=== PATIENT | male | born 1940 | race Caucasian/White ===

== ENCOUNTER → 2016-11-29 | Outpatient (CLI) | payer MEDICARE, BC | END | disposition home or self-care (01) | LOC: CDC 10:35 | DX: Z01.810 Encounter for preprocedural cardiovascular examination (principal) | CPT/HCPCS: 93000 ==

== ENCOUNTER 2017-04-19 15:47 | Inpatient (IN) | payer OTHER, BC ==
[~2017-04-19] VITALS: Ht 175.3 cm; Wt 87.8 kg
[2017-04-19 17:22] LABS: HEMATOCRIT 33.7 % (38.0-50.0); MCH 30.9 PG (29.0-34.0); MCHC 33.2 G/DL (30.0-36.0); PLATELET COUNT 234 K/uL (156-360); RBC DIS.WIDTH-CV 13.4 % (11.8-14.6); RBC DIS.WIDTH-SD 45.9 % (39-53); RED BLOOD COUNT 3.63 M/uL (4.00-5.50); WHITE BLOOD COUNT 9.2 K/uL (4.1-10.2)
[2017-04-19 17:29] LABS: CHLORIDE 105 mEq/L (99-109); MCV 92.8 FL (86-99); SODIUM 141 mEq/L (136-147)
[2017-04-19 17:30] LABS: GLUCOSE 98 mg/dL (70-99)
[2017-04-19 17:32] LABS: ANION GAP 12 MEQ/L (2-14)
[2017-04-19 17:34] LABS: GFR ESTIMATE (CALCULATED) 11 mL/min/
[2017-04-19 17:35] LABS: UREA NITROGEN (BUN) 67 mg/dL (9-23)
[2017-04-19 17:56] LABS: ADD MIUA? YES; BILIRUBIN NEGATIVE; BLOOD MODERATE; COLOR YELLOW ((YELLOW)); GLUCOSE (STRIP) NEGATIVE; KETONES NEGATIVE; LEUKOCYTES SMALL; NITRITE NEGATIVE; PROTEIN (STRIP) 100; UROBILINOGEN 0.2 MG/DL (0.2-1.0)
[2017-04-19 18:00] LABS: BACTERIA RARE /HPF; EPITHELIAL CELLS NONE SEEN /HPF; MUCUS TRACE /LPF; RED BLOOD CELLS 0-5 /HPF (0-5); UCUL ADDED? NO
[2017-04-19] MEDS ORDERED: FISH OIL 1,0001 EAC7 PO (19:05)
[2017-04-19] MEDS ORDERED: LISINOPRIL-HCT1 EACH PO (19:05)
[2017-04-19] MEDS ORDERED: LO-DOSE ASPIRIN81 M2 PO (19:05)
[2017-04-19] MEDS ORDERED: SIMVASTATIN40 MG PO (19:05)
[2017-04-19] MEDS ORDERED: ALEVE220 MG PO (19:06)
[2017-04-19] MEDS ORDERED: ONE-A-DAY ESSE1 EAC1 PO (19:06)
[2017-04-19 23:04] LABS: TOTAL BILIRUBIN 0.3 mg/dL (0.0-1.0)
[2017-04-19 23:05] LABS: ALKALINE PHOSPHATASE 86 IU/L (3-129)
[2017-04-19 23:07] LABS: DIRECT BILIRUBIN 0.1 mg/dL (0.0-0.3)
[2017-04-19 23:08] LABS: CREATINE KINASE 128 IU/L (1-294); URIC ACID 8.2 mg/dL (3.1-9.2)
[2017-04-19 23:53] VITALS: BP 130/61
[2017-04-20 02:23] LABS: UR CREATININE CONCENTRATION 109.3 MG/DL
[2017-04-20 04:15] VITALS: BP 143/67
[2017-04-20 07:12] LABS: HEMATOCRIT 32.5 % (38.0-50.0); MCH 31.6 PG (29.0-34.0); MCHC 33.5 G/DL (30.0-36.0); MCV 94.2 FL (86-99); MEAN PLAT.VOLUME 11.1 uM^3 (9.0-12.4); PLATELET COUNT 232 K/uL (156-360); RBC DIS.WIDTH-CV 13.5 % (11.8-14.6); RBC DIS.WIDTH-SD 46.1 % (39-53); RED BLOOD COUNT 3.45 M/uL (4.00-5.50); WHITE BLOOD COUNT 8.2 K/uL (4.1-10.2)
[2017-04-20 07:35] VITALS: BP 142/67
[2017-04-20 07:39] LABS: ANION GAP 9 MEQ/L (2-14); CHLORIDE 110 MEQ/L (99-109); GFR ESTIMATE (CALCULATED) 11 mL/min/; GLUCOSE 83 mg/dL (70-99); IRON 61 MCG/DL (35-150); POTASSIUM 4.5 MEQ/L (3.7-5.4); SAMPLE HEMOLYSIS CHECK 0; SAMPLE ICTERIC CHECK 0; SAMPLE LIPEMIA CHECK 0; SODIUM 143 MEQ/L (136-147); UREA NITROGEN (BUN) 64 mg/dL (9-23)
[2017-04-20 08:15] LABS: FERRITIN 246 NG/ML (22-322)
[2017-04-20 13:22] VITALS: BP 145/65
[2017-04-20 14:02] LABS: UR CREATININE CONCENTRATION 80.3 MG/DL
[2017-04-20 15:50] VITALS: BP 101/60; BP 135/84
[2017-04-20 20:38] VITALS: BP 112/64
[2017-04-20 23:18] VITALS: BP 163/70
[2017-04-21 06:40] LABS: BASOPHIL COUNT 0.1 K/uL (0-0.1); EOSINOPHIL (%) 5.2 % (0-5); EOSINOPHIL COUNT 0.3 K/uL (0-0.3); HEMATOCRIT 28.1 % (38.0-50.0); IMMATURE GRANULOCYTE (%) 0.3 % (0.0-0.7); LYMPHOCYTE COUNT 1.2 K/uL (1.0-2.8); MCH 31.5 PG (29.0-34.0); MCHC 33.5 G/DL (30.0-36.0); MCV 94.3 FL (86-99); MEAN PLAT.VOLUME 11.1 uM^3 (9.0-12.4); MONOCYTE (%) 10.1 % (3-12); MONOCYTE COUNT 0.6 K/uL (0-0.8); NEUTROPHIL (%) 64.2 % (45-76); PLATELET COUNT 205 K/uL (156-360); RBC DIS.WIDTH-CV 13.4 % (11.8-14.6); RBC DIS.WIDTH-SD 45.6 % (39-53); RED BLOOD COUNT 2.98 M/uL (4.00-5.50); WHITE BLOOD COUNT 6.2 K/uL (4.1-10.2)
[2017-04-21 07:10] LABS: ALKALINE PHOSPHATASE 76 IU/L (3-129); ANION GAP 9 MEQ/L (2-14); CHLORIDE 109 MEQ/L (99-109); GFR ESTIMATE (CALCULATED) 13 mL/min/; GLUCOSE 85 mg/dL (70-99); POTASSIUM 4.3 MEQ/L (3.7-5.4); SAMPLE HEMOLYSIS CHECK 0; SAMPLE ICTERIC CHECK 0; SAMPLE LIPEMIA CHECK 0; SODIUM 141 MEQ/L (136-147); UREA NITROGEN (BUN) 56 mg/dL (9-23)
[2017-04-21 07:11] LABS: TOTAL BILIRUBIN 0.5 MG/DL (0.0-1.0)
[2017-04-21 07:55] VITALS: BP 148/68
[2017-04-21 15:26] VITALS: BP 126/65
[2017-04-22 00:20] VITALS: BP 137/58
[2017-04-22 06:38] LABS: BASOPHIL COUNT 0.1 K/uL (0-0.1); EOSINOPHIL (%) 3.1 % (0-5); EOSINOPHIL COUNT 0.3 K/uL (0-0.3); HEMATOCRIT 30.8 % (38.0-50.0); IMMATURE GRANULOCYTE (%) 0.4 % (0.0-0.7); INSTRUMENT ABS NEUTROPHIL CT 6.2 K/uL; MCH 30.8 PG (29.0-34.0); MCHC 32.8 G/DL (30.0-36.0); MCV 93.9 FL (86-99); MONOCYTE (%) 8.7 % (3-12); MONOCYTE COUNT 0.7 K/uL (0-0.8); NEUTROPHIL (%) 74.8 % (45-76); NEUTROPHIL COUNT 6.2 K/uL (1.8-6.4); PLATELET COUNT 229 K/uL (156-360); RBC DIS.WIDTH-CV 13.2 % (11.8-14.6); RBC DIS.WIDTH-SD 44.9 % (39-53); RED BLOOD COUNT 3.28 M/uL (4.00-5.50); WHITE BLOOD COUNT 8.3 K/uL (4.1-10.2)
[2017-04-22 07:11] LABS: ALKALINE PHOSPHATASE 86 IU/L (3-129); ANION GAP 11 MEQ/L (2-14); CHLORIDE 109 MEQ/L (99-109); GFR ESTIMATE (CALCULATED) 15 mL/min/; POTASSIUM 4.5 MEQ/L (3.7-5.4); SAMPLE HEMOLYSIS CHECK 0; SAMPLE ICTERIC CHECK 0; SAMPLE LIPEMIA CHECK 0; SODIUM 143 MEQ/L (136-147); UREA NITROGEN (BUN) 48 mg/dL (9-23)
[2017-04-22 07:12] LABS: GLUCOSE 108 mg/dL (70-99); TOTAL BILIRUBIN 0.3 MG/DL (0.0-1.0)
[2017-04-22 08:22] VITALS: BP 101/56; BP 105/66
[2017-04-22 12:30] VITALS: BP 123/60
[2017-04-22 16:08] VITALS: BP 140/74
[2017-04-22 21:21] VITALS: BP 130/59
[2017-04-23 00:04] VITALS: BP 133/62
[2017-04-23 07:00] LABS: ANION GAP 9 MEQ/L (2-14); CHLORIDE 109 MEQ/L (99-109); GFR ESTIMATE (CALCULATED) 18 mL/min/; GLUCOSE 102 mg/dL (70-99); POTASSIUM 4.5 MEQ/L (3.7-5.4); SAMPLE HEMOLYSIS CHECK 0; SAMPLE ICTERIC CHECK 0; SAMPLE LIPEMIA CHECK 0; SODIUM 144 MEQ/L (136-147); UREA NITROGEN (BUN) 40 mg/dL (9-23)
[2017-04-23 08:11] VITALS: BP 120/69
== END 2017-04-23 14:52 | disposition home or self-care (01) | DRG 684 ==
LOC: EME 15:47 → EDOF 21:35 → 3EAST 21:35
PROVIDERS: Hospitalist; Internal Medicine
DX: N17.0 Acute kidney failure with tubular necrosis (principal); N13.30 Unspecified hydronephrosis; I10 Essential (primary) hypertension; N13.9 Obstructive and reflux uropathy, unspecified; F17.210 Nicotine dependence, cigarettes, uncomplicated; C67.9 Malignant neoplasm of bladder, unspecified; Z96.0 Presence of urogenital implants; I25.10 Atherosclerotic heart disease of native coronary artery without angina pectoris; G47.30 Sleep apnea, unspecified; E87.8 Other disorders of electrolyte and fluid balance, not elsewhere classified; I73.9 Peripheral vascular disease, unspecified; G89.29 Other chronic pain; K59.00 Constipation, unspecified; E78.00 Pure hypercholesterolemia, unspecified; D64.9 Anemia, unspecified; R32 Unspecified urinary incontinence; Z86.73 Personal history of transient ischemic attack (TIA), and cerebral infarction without residual deficits; Z85.46 Personal history of malignant neoplasm of prostate
CPT/HCPCS: 36415; 50433; 70490; 74176; 76770; 80048; 80053; 80069; 80076; 81003; 82436; 82550; 82550 91; 82570; 82728; 83036; 83540; 83930; 83935; 84100; 84133; 84156; 84300; 84443; 84466; 84550; 85025; 85027; 85651; 89190; 93975; 99281; 99285; C1769; G0103; J0696; J1644; J3010; J7030; J7050

== ENCOUNTER 2017-05-11 10:33 | Inpatient (IN) | payer OTHER, BC ==
[~2017-05-11] VITALS: Ht 175.3 cm; Wt 88.6 kg
[~2017-05-11 10:33] MED LIST: ALEVE220 MG PO; FISH OIL 1,0001 EAC7 PO; LISINOPRIL-HCT1 EACH PO; LO-DOSE ASPIRIN81 M2 PO; ONE-A-DAY ESSE1 EAC1 PO; SIMVASTATIN40 MG PO
[2017-05-11 11:41] LABS: BASOPHIL COUNT 0.1 K/uL (0-0.1); EOSINOPHIL (%) 0.2 % (0-5); HEMATOCRIT 35.5 % (38.0-50.0); IMMATURE GRANULOCYTE (%) 0.5 % (0.0-0.7); IMMATURE GRANULOCYTE COUNT 0.1 K/uL; INSTRUMENT ABS NEUTROPHIL CT 9.8 K/uL; LYMPHOCYTE COUNT 1.5 K/uL (1.0-2.8); MCH 30.4 PG (29.0-34.0); MCHC 32.4 G/DL (30.0-36.0); MCV 93.9 FL (86-99); MEAN PLAT.VOLUME 10.6 uM^3 (9.0-12.4); NEUTROPHIL (%) 79.1 % (45-76); NEUTROPHIL COUNT 9.8 K/uL (1.8-6.4); PLATELET COUNT 322 K/uL (156-360); RBC DIS.WIDTH-CV 13.3 % (11.8-14.6); RBC DIS.WIDTH-SD 45.5 % (39-53); RED BLOOD COUNT 3.78 M/uL (4.00-5.50); WHITE BLOOD COUNT 12.4 K/uL (4.1-10.2)
[2017-05-11 11:47] LABS: POINT-OF-CARE METER ID UU13113702
[2017-05-11 11:49] LABS: CHLORIDE 102 mEq/L (99-109); POTASSIUM 4.5 mEq/L (3.7-5.4); SODIUM 139 mEq/L (136-147)
[2017-05-11 11:51] LABS: GLUCOSE 171 mg/dL (70-99)
[2017-05-11 11:52] LABS: ANION GAP 14 MEQ/L (2-14)
[2017-05-11 11:55] LABS: GFR ESTIMATE (CALCULATED) 30 mL/min/
[2017-05-11 11:56] LABS: UREA NITROGEN (BUN) 29 mg/dL (9-23)
[2017-05-11 12:00] LABS: TROP-I INTERPRETATION NEGATIVE; TROPONIN-I 0.03 ng/mL (0.0-0.30)
[2017-05-11 12:11] LABS: ADD MIUA? YES; BILIRUBIN NEGATIVE; BLOOD SMALL; COLOR AMBER ((YELLOW)); GLUCOSE (STRIP) NEGATIVE; KETONES NEGATIVE; LEUKOCYTES LARGE; NITRITE NEGATIVE; PROTEIN (STRIP) 100; SPECIFIC GRAVITY 1.013 (1.000-1.030)
[2017-05-11 12:29] LABS: BACTERIA 3+ /HPF; CASTS NONE SEEN /LPF; CRYSTALS NONE SEEN; EPITHELIAL CELLS NONE SEEN /HPF; MUCUS NONE SEEN /LPF; UCUL ADDED? YES; WHITE BLOOD CELLS TNTC /HPF (0-5)
[2017-05-11] MEDS ORDERED: AMLODIPINE BESYL5 MG PO (14:30)
[2017-05-11] MEDS ORDERED: ONDANSETRON HCL4 MG PO (14:30)
[2017-05-11 15:08] LABS: INTER. NORMALIZED RATIO 1.1; PTT 29.6 (25-32)
[2017-05-11 17:20] VITALS: BP 131/68
[2017-05-11 18:47] LABS: INTER. NORMALIZED RATIO 1.2
[2017-05-11 18:54] LABS: PTT 83.2 (25-32)
[2017-05-11 18:59] LABS: TROP-I INTERPRETATION NEGATIVE; TROPONIN-I 0.05 ng/mL (0.0-0.30)
[2017-05-11 19:16] VITALS: BP 101/50
[2017-05-11 23:47] VITALS: BP 114/58
[2017-05-12 01:23] LABS: TROP-I INTERPRETATION NEGATIVE; TROPONIN-I 0.04 ng/mL (0.0-0.30)
[2017-05-12 04:56] VITALS: BP 131/59
[2017-05-12 06:51] VITALS: BP 116/55
[2017-05-12 07:12] LABS: MCH 30.7 PG (29.0-34.0); MCHC 32.7 G/DL (30.0-36.0); MCV 93.9 FL (86-99); PLATELET COUNT 233 K/uL (156-360); RBC DIS.WIDTH-CV 13.2 % (11.8-14.6); RBC DIS.WIDTH-SD 45.6 % (39-53); WHITE BLOOD COUNT 7.3 K/uL (4.1-10.2)
[2017-05-12 07:14] LABS: RED BLOOD COUNT 2.77 M/uL (4.00-5.50)
[2017-05-12 08:01] LABS: ALKALINE PHOSPHATASE 104 IU/L (3-129); ANION GAP 7 MEQ/L (2-14); CHLORIDE 111 MEQ/L (99-109); POTASSIUM 4.2 MEQ/L (3.7-5.4); SAMPLE HEMOLYSIS CHECK 0; SAMPLE ICTERIC CHECK 0; SAMPLE LIPEMIA CHECK 0; SODIUM 141 MEQ/L (136-147); TOTAL BILIRUBIN 0.4 MG/DL (0.0-1.0); UREA NITROGEN (BUN) 22 mg/dL (9-23)
[2017-05-12 08:05] LABS: GFR ESTIMATE (CALCULATED) 42 mL/min/; GLUCOSE 94 mg/dL (70-99)
[2017-05-12 09:28] LABS: MAGNESIUM 1.5 mg/dl (1.3-2.7)
[2017-05-12 09:53] LABS: TROP-I INTERPRETATION NEGATIVE; TROPONIN-I 0.03 ng/mL (0.0-0.30)
[2017-05-12 10:55] VITALS: BP 119/56
[2017-05-12 11:50] LABS: ABSOLUTE RETICULOCYTE CT. 0.1 M/uL (0.02-0.08); IMM.RETIC FRACTION 25.4 % (3-19); RETIC HGB EQUIVALENT 26.3 (28-36); RETICULOCYTE COUNT 2.6 % (0.5-1.8)
[2017-05-12 12:00] LABS: INTER. NORMALIZED RATIO 1.1; PROTHROMBIN TIME 11.1 (9.2-11.2); PTT 44.6 (25-32)
[2017-05-12 12:27] LABS: IRON 27 MCG/DL (35-150)
[2017-05-12 12:42] LABS: FERRITIN 301 NG/ML (22-322)
[2017-05-12 15:22] LABS: HEMATOCRIT 26.6 % (38.0-50.0)
[2017-05-12 19:11] VITALS: BP 123/60
[2017-05-12 23:09] VITALS: BP 137/65
[2017-05-13 04:06] VITALS: BP 134/62
[2017-05-13 05:38] LABS: HEMATOCRIT 26.8 % (38.0-50.0); MCH 30.2 PG (29.0-34.0); MCHC 32.1 G/DL (30.0-36.0); MEAN PLAT.VOLUME 10.3 uM^3 (9.0-12.4); PLATELET COUNT 255 K/uL (156-360); RBC DIS.WIDTH-CV 13.2 % (11.8-14.6); RBC DIS.WIDTH-SD 45.7 % (39-53); RED BLOOD COUNT 2.85 M/uL (4.00-5.50)
[2017-05-13 07:20] VITALS: BP 135/60
[2017-05-13 11:54] VITALS: BP 131/63
[2017-05-13 16:39] VITALS: BP 140/66
[2017-05-13 20:00] VITALS: BP 160/67
[2017-05-13 23:55] VITALS: BP 137/63
[2017-05-14 04:00] VITALS: BP 141/67
[2017-05-14 05:26] LABS: BASOPHIL COUNT 0.1 K/uL (0-0.1); EOSINOPHIL (%) 5.3 % (0-5); EOSINOPHIL COUNT 0.4 K/uL (0-0.3); HEMATOCRIT 26.5 % (38.0-50.0); IMMATURE GRANULOCYTE (%) 0.1 % (0.0-0.7); INSTRUMENT ABS NEUTROPHIL CT 4.5 K/uL; LYMPHOCYTE COUNT 1.2 K/uL (1.0-2.8); MCH 31.8 PG (29.0-34.0); MCV 93.6 FL (86-99); MEAN PLAT.VOLUME 10.9 uM^3 (9.0-12.4); MONOCYTE (%) 10.3 % (3-12); MONOCYTE COUNT 0.7 K/uL (0-0.8); NEUTROPHIL (%) 65.8 % (45-76); NEUTROPHIL COUNT 4.5 K/uL (1.8-6.4); PLATELET COUNT 267 K/uL (156-360); RBC DIS.WIDTH-CV 13.4 % (11.8-14.6); RBC DIS.WIDTH-SD 45.6 % (39-53); RED BLOOD COUNT 2.83 M/uL (4.00-5.50); WHITE BLOOD COUNT 6.8 K/uL (4.1-10.2)
[2017-05-14 05:57] LABS: ALKALINE PHOSPHATASE 116 IU/L (3-129); ANION GAP 8 MEQ/L (2-14); CHLORIDE 109 MEQ/L (99-109); GFR ESTIMATE (CALCULATED) 42 mL/min/; GLUCOSE 95 mg/dL (70-99); POTASSIUM 4.1 MEQ/L (3.7-5.4); SAMPLE HEMOLYSIS CHECK 0; SAMPLE ICTERIC CHECK 0; SAMPLE LIPEMIA CHECK 0; SODIUM 142 MEQ/L (136-147); TOTAL BILIRUBIN 0.2 MG/DL (0.0-1.0); UREA NITROGEN (BUN) 17 mg/dL (9-23)
[2017-05-14] MEDS ORDERED: FERROUS SULFAT325 MG PO (10:38)
[2017-05-14] MEDS ORDERED: NICOTINE PATCH1 EAC1 TD (10:38)
[2017-05-14] MEDS ORDERED: KEFLEX500 MG PO (10:41)
[2017-05-14] MEDS ORDERED: MUPIROCIN15 GM TP (10:57)
== END 2017-05-14 11:54 | disposition home or self-care (01) | DRG 309 ==
LOC: EME 10:33 → EDOF 14:21 → 4EAST 17:04
PROVIDERS: Emergency Medicine; Hospitalist; Internal Medicine; Internal Medicine Cardiovascular Disease
DX: I48.0 Paroxysmal atrial fibrillation (principal); I47.2 Ventricular tachycardia; N17.9 Acute kidney failure, unspecified; N99.521 Infection of incontinent external stoma of urinary tract; B95.61 Methicillin susceptible Staphylococcus aureus infection as the cause of diseases classified elsewhere; I12.9 Hypertensive chronic kidney disease with stage 1 through stage 4 chronic kidney disease, or unspecified chronic kidney disease; N18.3 Chronic kidney disease, stage 3 (moderate); K59.00 Constipation, unspecified; I65.23 Occlusion and stenosis of bilateral carotid arteries; G47.33 Obstructive sleep apnea (adult) (pediatric); N13.5 Crossing vessel and stricture of ureter without hydronephrosis; N13.30 Unspecified hydronephrosis; I95.9 Hypotension, unspecified; D64.9 Anemia, unspecified; E78.00 Pure hypercholesterolemia, unspecified; E78.5 Hyperlipidemia, unspecified; F17.210 Nicotine dependence, cigarettes, uncomplicated; I25.10 Atherosclerotic heart disease of native coronary artery without angina pectoris; I73.9 Peripheral vascular disease, unspecified; R32 Unspecified urinary incontinence; Z86.73 Personal history of transient ischemic attack (TIA), and cerebral infarction without residual deficits; Z85.46 Personal history of malignant neoplasm of prostate; Z85.51 Personal history of malignant neoplasm of bladder
CPT/HCPCS: 70450; 71020; 78582; 80048; 80053; 81003; 82272; 82607; 82728; 82746; 82948; 83540; 83605; 83735; 84484; 85014; 85018; 85025; 85027; 85045; 85610; 85730; 87040; 87070; 87075; 87077; 87086; 87147; 87186; 87205; 93005; 93306; 93880; 99281; 99285; A9539; A9540; J0696; J1160; J2543; J3370; J7030; J7050

== ENCOUNTER → 2017-05-29 | Outpatient (CLI) | payer OTHER, BC ==
[~2017-05-29] MED LIST changes: +AMLODIPINE BESYL5 MG PO; +FERROUS SULFAT325 MG PO; +KEFLEX500 MG PO; +MUPIROCIN15 GM TP; +NICOTINE PATCH1 EAC1 TD; +ONDANSETRON HCL4 MG PO
== END | disposition home or self-care (01) ==
LOC: RAD 15:00
DX: T83.092 Other mechanical complication of nephrostomy catheter (principal)
CPT/HCPCS: 50431

== ENCOUNTER → 2017-06-19 | Outpatient (CLI) | payer OTHER, BC | END | disposition home or self-care (01) | LOC: RAD 10:46 | DX: R91.8 Other nonspecific abnormal finding of lung field (principal); Z93.6 Other artificial openings of urinary tract status; C67.9 Malignant neoplasm of bladder, unspecified | CPT/HCPCS: 71250; 74176 ==

== ENCOUNTER 2017-06-25 17:41 | Inpatient (IN) | payer OTHER, BC ==
[~2017-06-25] VITALS: Ht 175.3 cm; Wt 86.7 kg
[~2017-06-25 17:41] MED LIST changes: -ELIQUIS5 MG PO; -LEVAQUIN500 MG PO; -LEVAQUIN750 MG PO
[2017-06-25 18:05] LABS: HEMATOCRIT 32.1 % (38.0-50.0); MCH 29.8 PG (29.0-34.0); MEAN PLAT.VOLUME 10.3 uM^3 (9.0-12.4); PLATELET COUNT 297 K/uL (156-360); RBC DIS.WIDTH-SD 45.7 % (39-53); RED BLOOD COUNT 3.56 M/uL (4.00-5.50); WHITE BLOOD COUNT 11.7 K/uL (4.1-10.2)
[2017-06-25 18:13] LABS: ANION GAP 13 MEQ/L (2-14); CHLORIDE 104 MEQ/L (99-109); POTASSIUM 3.8 MEQ/L (3.7-5.4); SAMPLE HEMOLYSIS CHECK 0; SAMPLE ICTERIC CHECK 0; SAMPLE LIPEMIA CHECK 0; SODIUM 137 MEQ/L (136-147); TOTAL BILIRUBIN 0.8 MG/DL (0.0-1.0)
[2017-06-25 18:18] LABS: ALKALINE PHOSPHATASE 94 IU/L (3-129); GFR ESTIMATE (CALCULATED) 21 mL/min/; GLUCOSE 134 mg/dL (70-99); UREA NITROGEN (BUN) 32 mg/dL (9-23)
[2017-06-25 18:24] LABS: MCV 90.2 FL (86-99)
[2017-06-25 18:30] VITALS: BP 119/47
[2017-06-25 19:00] VITALS: BP 105/60
[2017-06-25 19:54] LABS: METH RESISTANT S AUREUS PCR NEGATIVE (NEGATIVE)
[2017-06-25 20:00] VITALS: BP 100/48
[2017-06-25 20:12] LABS: PROBE CHECK PASS; SPECIMEN PROCESSING CONTROL PASS
[2017-06-25 21:00] VITALS: BP 118/49
[2017-06-25 22:00] VITALS: BP 123/43
[2017-06-25 23:00] VITALS: BP 114/55
[2017-06-26] VITALS (7 sets, daily range): BP systolic 111–146; BP diastolic 44–60
[2017-06-26 05:25] LABS: EOSINOPHIL (%) 0 % (0-5); HEMATOCRIT 29.9 % (38.0-50.0); IMMATURE GRANULOCYTE (%) 1.3 % (0.0-0.7); IMMATURE GRANULOCYTE COUNT 0.2 K/uL; INSTRUMENT ABS NEUTROPHIL CT 15.5 K/uL; MCH 28.6 PG (29.0-34.0); MCHC 31.1 G/DL (30.0-36.0); MONOCYTE (%) 6.9 % (3-12); MONOCYTE COUNT 1.2 K/uL (0-0.8); NEUTROPHIL (%) 86.3 % (45-76); NEUTROPHIL COUNT 15.5 K/uL (1.8-6.4); PLATELET COUNT 262 K/uL (156-360); RBC DIS.WIDTH-CV 13.8 % (11.8-14.6); RBC DIS.WIDTH-SD 46.7 % (39-53); RED BLOOD COUNT 3.25 M/uL (4.00-5.50)
[2017-06-26 05:56] LABS: ANION GAP 8 MEQ/L (2-14); CHLORIDE 107 MEQ/L (99-109); GFR ESTIMATE (CALCULATED) 22 mL/min/; GLUCOSE 118 mg/dL (70-99); SAMPLE HEMOLYSIS CHECK 0; SAMPLE ICTERIC CHECK 0; SAMPLE LIPEMIA CHECK 0; SODIUM 139 MEQ/L (136-147); UREA NITROGEN (BUN) 32 mg/dL (9-23)
[2017-06-26 05:57] LABS: POTASSIUM 4.7 MEQ/L (3.7-5.4)
[2017-06-26] MEDS ORDERED: MUPIROCIN15 GM TP (07:35)
[2017-06-27 05:40] LABS: BASOPHIL COUNT 0.1 K/uL (0-0.1); EOSINOPHIL (%) 0.2 % (0-5); HEMATOCRIT 25.9 % (38.0-50.0); IMMATURE GRANULOCYTE (%) 0.5 % (0.0-0.7); IMMATURE GRANULOCYTE COUNT 0.1 K/uL; INSTRUMENT ABS NEUTROPHIL CT 11.2 K/uL; LYMPHOCYTE COUNT 0.7 K/uL (1.0-2.8); MCH 29.3 PG (29.0-34.0); MCHC 32.8 G/DL (30.0-36.0); MCV 89.3 FL (86-99); MEAN PLAT.VOLUME 10.5 uM^3 (9.0-12.4); MONOCYTE (%) 7.2 % (3-12); MONOCYTE COUNT 0.9 K/uL (0-0.8); NEUTROPHIL (%) 86.7 % (45-76); NEUTROPHIL COUNT 11.2 K/uL (1.8-6.4); PLATELET COUNT 252 K/uL (156-360); RBC DIS.WIDTH-CV 13.9 % (11.8-14.6); RBC DIS.WIDTH-SD 45.5 % (39-53)
[2017-06-27 06:06] LABS: ALKALINE PHOSPHATASE 75 IU/L (3-129); ANION GAP 10 MEQ/L (2-14); CHLORIDE 110 MEQ/L (99-109); GLUCOSE 97 mg/dL (70-99); SAMPLE HEMOLYSIS CHECK 0; SAMPLE ICTERIC CHECK 0; SAMPLE LIPEMIA CHECK 0; SODIUM 140 MEQ/L (136-147); TOTAL BILIRUBIN 0.7 MG/DL (0.0-1.0); UREA NITROGEN (BUN) 28 mg/dL (9-23)
[2017-06-27 06:12] LABS: GFR ESTIMATE (CALCULATED) 27 mL/min/; POTASSIUM 3.5 MEQ/L (3.7-5.4)
[2017-06-27 08:00] VITALS: BP 106/62
[2017-06-27 09:56] LABS: MAGNESIUM 1.4 mg/dl (1.3-2.7)
[2017-06-27 12:00] VITALS: BP 94/60
[2017-06-27 16:00] VITALS: BP 136/77
[2017-06-27 19:56] LABS: HEMATOCRIT 27.1 % (38.0-50.0); MCV 89.4 FL (86-99)
[2017-06-27 20:20] LABS: TROP-I INTERPRETATION NEGATIVE; TROPONIN-I 0.04 ng/mL (0.0-0.30)
[2017-06-28 05:37] LABS: EOSINOPHIL (%) 0.7 % (0-5); EOSINOPHIL COUNT 0.1 K/uL (0-0.3); HEMATOCRIT 26.2 % (38.0-50.0); IMMATURE GRANULOCYTE (%) 0.5 % (0.0-0.7); INSTRUMENT ABS NEUTROPHIL CT 6.5 K/uL; LYMPHOCYTE COUNT 0.7 K/uL (1.0-2.8); MCHC 32.4 G/DL (30.0-36.0); MCV 89.4 FL (86-99); MEAN PLAT.VOLUME 10.7 uM^3 (9.0-12.4); MONOCYTE (%) 8.9 % (3-12); MONOCYTE COUNT 0.7 K/uL (0-0.8); NEUTROPHIL (%) 81.2 % (45-76); NEUTROPHIL COUNT 6.5 K/uL (1.8-6.4); PLATELET COUNT 251 K/uL (156-360); RBC DIS.WIDTH-CV 14.1 % (11.8-14.6); RBC DIS.WIDTH-SD 45.9 % (39-53); RED BLOOD COUNT 2.93 M/uL (4.00-5.50)
[2017-06-28 06:00] LABS: ALKALINE PHOSPHATASE 111 IU/L (3-129); ANION GAP 10 MEQ/L (2-14); CHLORIDE 110 MEQ/L (99-109); GFR ESTIMATE (CALCULATED) 35 mL/min/; GLUCOSE 87 mg/dL (70-99); POTASSIUM 4.3 MEQ/L (3.7-5.4); SAMPLE HEMOLYSIS CHECK 0; SAMPLE ICTERIC CHECK 0; SAMPLE LIPEMIA CHECK 0; SODIUM 142 MEQ/L (136-147); TOTAL BILIRUBIN 0.8 MG/DL (0.0-1.0); UREA NITROGEN (BUN) 24 mg/dL (9-23)
[2017-06-28 08:00] VITALS: BP 133/77
[2017-06-28 12:00] VITALS: BP 129/85
[2017-06-28 14:00] VITALS: BP 112/59
[2017-06-28 16:00] VITALS: BP 112/59
[2017-06-28 20:00] VITALS: BP 125/53
[2017-06-28 22:35] VITALS: BP 124/68
[2017-06-29] VITALS (7 sets, daily range): BP systolic 116–156; BP diastolic 56–78
[2017-06-29 06:03] LABS: EOSINOPHIL (%) 1.2 % (0-5); EOSINOPHIL COUNT 0.1 K/uL (0-0.3); HEMATOCRIT 26.4 % (38.0-50.0); IMMATURE GRANULOCYTE (%) 0.4 % (0.0-0.7); INSTRUMENT ABS NEUTROPHIL CT 4.9 K/uL; LYMPHOCYTE COUNT 0.8 K/uL (1.0-2.8); MCH 29.3 PG (29.0-34.0); MCV 88.9 FL (86-99); MEAN PLAT.VOLUME 10.9 uM^3 (9.0-12.4); MONOCYTE (%) 12.9 % (3-12); MONOCYTE COUNT 0.9 K/uL (0-0.8); NEUTROPHIL (%) 73.4 % (45-76); NEUTROPHIL COUNT 4.9 K/uL (1.8-6.4); PLATELET COUNT 264 K/uL (156-360); RBC DIS.WIDTH-CV 14.2 % (11.8-14.6); RBC DIS.WIDTH-SD 46.4 % (39-53); RED BLOOD COUNT 2.97 M/uL (4.00-5.50); WHITE BLOOD COUNT 6.7 K/uL (4.1-10.2)
[2017-06-29 06:34] LABS: ANION GAP 8 MEQ/L (2-14); CHLORIDE 108 MEQ/L (99-109); GFR ESTIMATE (CALCULATED) 37 mL/min/; GLUCOSE 86 mg/dL (70-99); POTASSIUM 4.3 MEQ/L (3.7-5.4); SAMPLE HEMOLYSIS CHECK 0; SAMPLE ICTERIC CHECK 0; SAMPLE LIPEMIA CHECK 0; SODIUM 138 MEQ/L (136-147); TOTAL BILIRUBIN 0.7 MG/DL (0.0-1.0); UREA NITROGEN (BUN) 23 mg/dL (9-23)
[2017-06-29 06:35] LABS: ALKALINE PHOSPHATASE 168 IU/L (3-129)
[2017-06-30 03:28] VITALS: BP 129/63
[2017-06-30 06:05] LABS: BASOPHIL COUNT 0.1 K/uL (0-0.1); EOSINOPHIL COUNT 0.2 K/uL (0-0.3); HEMATOCRIT 29.9 % (38.0-50.0); IMMATURE GRANULOCYTE (%) 0.5 % (0.0-0.7); INSTRUMENT ABS NEUTROPHIL CT 5.4 K/uL; LYMPHOCYTE COUNT 0.8 K/uL (1.0-2.8); MCHC 32.8 G/DL (30.0-36.0); MCV 88.5 FL (86-99); MEAN PLAT.VOLUME 10.9 uM^3 (9.0-12.4); MONOCYTE (%) 14.2 % (3-12); MONOCYTE COUNT 1.1 K/uL (0-0.8); NEUTROPHIL (%) 71.6 % (45-76); NEUTROPHIL COUNT 5.4 K/uL (1.8-6.4); PLATELET COUNT 314 K/uL (156-360); RBC DIS.WIDTH-CV 14.2 % (11.8-14.6); RBC DIS.WIDTH-SD 45.8 % (39-53); RED BLOOD COUNT 3.38 M/uL (4.00-5.50); WHITE BLOOD COUNT 7.6 K/uL (4.1-10.2)
[2017-06-30 06:38] LABS: ANION GAP 8 MEQ/L (2-14); CHLORIDE 105 MEQ/L (99-109); GFR ESTIMATE (CALCULATED) 37 mL/min/; GLUCOSE 104 mg/dL (70-99); POTASSIUM 4.1 MEQ/L (3.7-5.4); SAMPLE HEMOLYSIS CHECK 0; SAMPLE ICTERIC CHECK 0; SAMPLE LIPEMIA CHECK 0; SODIUM 139 MEQ/L (136-147); UREA NITROGEN (BUN) 22 mg/dL (9-23)
[2017-06-30 08:03] VITALS: BP 142/71
[2017-06-30] MEDS ORDERED: LEVAQUIN500 MG PO (10:32)
[2017-06-30] MEDS ORDERED: ELIQUIS5 MG PO ×2 (10:32→11:18)
[2017-06-30] MEDS ORDERED: LEVAQUIN750 MG PO (10:34)
[2017-06-30 12:09] VITALS: BP 111/67
== END 2017-06-30 13:52 | disposition home or self-care (01) | DRG 872 ==
LOC: 4WEST 17:41 → ENRESERV 17:42 → 5SOUTH 17:48 → 4WEST 17:48 → ENRESERV 06-28 09:36 → 5SOUTH 06-28 22:30 → ENPENDDIS 06-30 → 5SOUTH 06-30 13:52
PROVIDERS: Hospitalist
PROC: 0T9430Z Drainage of Left Kidney Pelvis with Drainage Device, Percutaneous Approach (ICD-10-PCS; principal; 2017-06-25)
DX: A41.9 Sepsis, unspecified organism (principal); N17.9 Acute kidney failure, unspecified; I48.0 Paroxysmal atrial fibrillation; C67.9 Malignant neoplasm of bladder, unspecified; I65.23 Occlusion and stenosis of bilateral carotid arteries; I10 Essential (primary) hypertension; N10 Acute pyelonephritis; D64.9 Anemia, unspecified; N13.6 Pyonephrosis; R41.82 Altered mental status, unspecified; Z85.46 Personal history of malignant neoplasm of prostate; E78.5 Hyperlipidemia, unspecified; I73.9 Peripheral vascular disease, unspecified; F17.210 Nicotine dependence, cigarettes, uncomplicated; B95.61 Methicillin susceptible Staphylococcus aureus infection as the cause of diseases classified elsewhere; Z86.73 Personal history of transient ischemic attack (TIA), and cerebral infarction without residual deficits; G47.30 Sleep apnea, unspecified; R97.20 Elevated prostate specific antigen [PSA]; J98.11 Atelectasis; Z86.79 Personal history of other diseases of the circulatory system; Z93.6 Other artificial openings of urinary tract status
CPT/HCPCS: 49405; 50432; 71010; 74176; 80048; 80053; 80202; 82272; 83605; 83735; 83880; 84484; 85014; 85018; 85025; 85027; 85610; 85730; 87040; 87077; 87086; 87147; 87186; 87641; 93005; 94640 76; 94799; 99202; C1769; G0103; J0696; J1644; J2543; J3010; J3370; J3480; J7030; J7050

== ENCOUNTER → 2017-06-25 | Outpatient (CLI) | payer OTHER, BC ==
[~2017-06-25] VITALS: Ht 172.7 cm; Wt 85.7 kg
[~2017-06-25] MED LIST changes: +CORDARONE200 MG PO; +ELIQUIS5 MG PO; +FEOSOL325 MG PO; +LEVAQUIN500 MG PO; +LEVAQUIN750 MG PO; +NORVASC5 MG PO; +ZOFRAN4 MG PO
[2017-06-25 14:02] LABS: INTER. NORMALIZED RATIO 1.1; PROTHROMBIN TIME 12.4 SEC (10.2-12.9)
[2017-06-25 14:05] LABS: PTT 26.3 SEC (25-37)
== END | disposition home or self-care (01) ==
LOC: OPR 12:52 → EDSTATUS 13:00
PROVIDERS: Urology
PROC: 0T9130Z Drainage of Left Kidney with Drainage Device, Percutaneous Approach (ICD-10-PCS; principal; 2017-06-25)
DX: T83.022A Displacement of nephrostomy catheter, initial encounter (principal); N13.30 Unspecified hydronephrosis; Y83.1 Surgical operation with implant of artificial internal device as the cause of abnormal reaction of the patient, or of later complication, without mention of misadventure at the time of the procedure
CPT/HCPCS: 49405; 50432; 85610; 85730; 87040; 87077; 87086; 87186; C1769; J0696; J3010; J7050

== ENCOUNTER 2017-07-15 09:11 | Observation (INO) | payer OTHER, BC ==
[~2017-07-15] VITALS: Ht 177.8 cm; Wt 85.0 kg
[~2017-07-15 09:11] MED LIST changes: +ELIQUIS5 MG PO; +LEVAQUIN500 MG PO; +LEVAQUIN750 MG PO
[2017-07-15 09:47] LABS: BASOPHIL COUNT 0.1 K/uL (0-0.1); EOSINOPHIL (%) 2.3 % (0-5); EOSINOPHIL COUNT 0.2 K/uL (0-0.3); HEMATOCRIT 27.9 % (38.0-50.0); IMMATURE GRANULOCYTE (%) 0.6 % (0.0-0.7); IMMATURE GRANULOCYTE COUNT 0.1 K/uL; INSTRUMENT ABS NEUTROPHIL CT 6.2 K/uL; LYMPHOCYTE COUNT 1.3 K/uL (1.0-2.8); MCH 27.9 PG (29.0-34.0); MCHC 30.5 G/DL (30.0-36.0); MCV 91.5 FL (86-99); MONOCYTE (%) 7.1 % (3-12); MONOCYTE COUNT 0.6 K/uL (0-0.8); NEUTROPHIL (%) 73.3 % (45-76); NEUTROPHIL COUNT 6.2 K/uL (1.8-6.4); RBC DIS.WIDTH-CV 15.7 % (11.8-14.6); RBC DIS.WIDTH-SD 50.8 % (39-53); RED BLOOD COUNT 3.05 M/uL (4.00-5.50); WHITE BLOOD COUNT 8.4 K/uL (4.1-10.2)
[2017-07-15 09:48] LABS: PLATELET COUNT 420 K/uL (156-360)
[2017-07-15 09:54] LABS: CHLORIDE 106 mEq/L (99-109); POTASSIUM 4.3 mEq/L (3.7-5.4); SODIUM 141 mEq/L (136-147)
[2017-07-15 09:56] LABS: ADD MIUA? YES; BILIRUBIN NEGATIVE; BLOOD NEGATIVE; COLOR YELLOW ((YELLOW)); GLUCOSE (STRIP) NEGATIVE; KETONES NEGATIVE; LEUKOCYTES TRACE; NITRITE NEGATIVE; PROTEIN (STRIP) 30; SPECIFIC GRAVITY 1.011 (1.000-1.030); UROBILINOGEN 0.2 MG/DL (0.2-1.0)
[2017-07-15 09:56] LABS: GLUCOSE 112 mg/dL (70-99)
[2017-07-15 09:57] LABS: ANION GAP 10 MEQ/L (2-14)
[2017-07-15 09:58] LABS: TOTAL BILIRUBIN 0.4 mg/dL (0.0-1.0)
[2017-07-15 10:00] LABS: ALKALINE PHOSPHATASE 128 IU/L (3-129); GFR ESTIMATE (CALCULATED) 39 mL/min/
[2017-07-15 10:01] LABS: UREA NITROGEN (BUN) 26 mg/dL (9-23)
[2017-07-15 10:04] LABS: BACTERIA NONE SEEN /HPF; EPITHELIAL CELLS NONE SEEN /HPF; HYALINE CASTS 0-5 /LPF; MUCUS TRACE /LPF; RED BLOOD CELLS 0-5 /HPF (0-5); WHITE BLOOD CELLS 0-5 /HPF (0-5)
[2017-07-15 10:06] LABS: TROP-I INTERPRETATION NEGATIVE; TROPONIN-I 0.02 ng/mL (0.0-0.30)
[2017-07-15] MEDS ORDERED: COLACE100 MG PO (12:48)
[2017-07-15 14:25] VITALS: BP 159/70
[2017-07-15 16:27] LABS: TROP-I INTERPRETATION NEGATIVE; TROPONIN-I 0.03 ng/mL (0.0-0.30)
[2017-07-15 22:10] LABS: TROP-I INTERPRETATION NEGATIVE; TROPONIN-I 0.02 ng/mL (0.0-0.30)
[2017-07-15 23:31] VITALS: BP 138/60
[2017-07-16 03:49] VITALS: BP 138/63
[2017-07-16 09:52] VITALS: BP 129/59
== END 2017-07-16 13:50 | disposition home or self-care (01) ==
LOC: EME 09:11 → EDOF 11:35 → 5WEST 11:35 → EDOF 11:35 → ENRESERV 11:36 → EDOF 11:44 → 5WEST 14:01
PROVIDERS: Emergency Medicine; Internal Medicine
DX: R55 Syncope and collapse (principal); R53.1 Weakness; D64.9 Anemia, unspecified; I73.9 Peripheral vascular disease, unspecified; Z95.820 Peripheral vascular angioplasty status with implants and grafts; I48.0 Paroxysmal atrial fibrillation; Z79.01 Long term (current) use of anticoagulants; I10 Essential (primary) hypertension; E78.5 Hyperlipidemia, unspecified; K59.00 Constipation, unspecified; Z85.46 Personal history of malignant neoplasm of prostate; Z85.51 Personal history of malignant neoplasm of bladder; F17.210 Nicotine dependence, cigarettes, uncomplicated
CPT/HCPCS: 70450; 71010; 74176; 78582; 80053; 81003; 84484; 85025; 85379; 93005; 94799; 99281; 99285; A9540; A9567; G0378; J7030

== ENCOUNTER 2017-08-05 13:03 | Inpatient (IN) | payer OTHER, BC ==
[~2017-08-05] VITALS: Ht 175.3 cm; Wt 82.9 kg
[~2017-08-05 13:03] MED LIST changes: +COLACE100 MG PO
[2017-08-05 14:41] LABS: EOSINOPHIL (%) 1.1 % (0-5); EOSINOPHIL COUNT 0.1 K/uL (0-0.3); HEMATOCRIT 32.8 % (38.0-50.0); IMMATURE GRANULOCYTE (%) 0.5 % (0.0-0.7); INSTRUMENT ABS NEUTROPHIL CT 3.5 K/uL; LYMPHOCYTE COUNT 0.6 K/uL (1.0-2.8); MCH 27.4 PG (29.0-34.0); MCHC 30.2 G/DL (30.0-36.0); MCV 90.9 FL (86-99); MEAN PLAT.VOLUME 9.6 uM^3 (9.0-12.4); MONOCYTE (%) 7.2 % (3-12); MONOCYTE COUNT 0.3 K/uL (0-0.8); NEUTROPHIL (%) 77.6 % (45-76); NEUTROPHIL COUNT 3.5 K/uL (1.8-6.4); PLATELET COUNT 322 K/uL (156-360); RBC DIS.WIDTH-CV 15.9 % (11.8-14.6); RBC DIS.WIDTH-SD 52.9 % (39-53); RED BLOOD COUNT 3.61 M/uL (4.00-5.50); WHITE BLOOD COUNT 4.4 K/uL (4.1-10.2)
[2017-08-05 14:49] LABS: CHLORIDE 106 mEq/L (99-109); POTASSIUM 3.9 mEq/L (3.7-5.4); SODIUM 140 mEq/L (136-147)
[2017-08-05 14:51] LABS: GLUCOSE 133 mg/dL (70-99)
[2017-08-05 14:53] LABS: ANION GAP 9 MEQ/L (2-14); TOTAL BILIRUBIN 0.4 mg/dL (0.0-1.0)
[2017-08-05 14:55] LABS: ALKALINE PHOSPHATASE 115 IU/L (3-129); GFR ESTIMATE (CALCULATED) 42 mL/min/
[2017-08-05 14:56] LABS: UREA NITROGEN (BUN) 22 mg/dL (9-23)
[2017-08-05 14:58] LABS: LIPASE 31 U/L (1.0-51.0)
[2017-08-05 15:00] LABS: TROP-I INTERPRETATION NEGATIVE; TROPONIN-I 0.02 ng/mL (0.0-0.30)
[2017-08-05 15:15] LABS: ADD MIUA? YES; BILIRUBIN NEGATIVE; BLOOD SMALL; COLOR YELLOW ((YELLOW)); GLUCOSE (STRIP) NEGATIVE; KETONES NEGATIVE; LEUKOCYTES MODERATE; NITRITE POSITIVE; PROTEIN (STRIP) NEGATIVE; UROBILINOGEN 0.2 MG/DL (0.2-1.0)
[2017-08-05 15:26] LABS: BACTERIA RARE /HPF; EPITHELIAL CELLS NONE SEEN /HPF; HYALINE CASTS 0-5 /LPF; MUCUS TRACE /LPF; RED BLOOD CELLS 0-5 /HPF (0-5); UCUL ADDED? YES
[2017-08-05] MEDS ORDERED: OMEGA-31000 M1 PO (18:28)
[2017-08-05 21:37] LABS: Estimated Average Glucose 100 mg/dL (70-123); HEMOGLOBIN A1c (GLYCOHEMOGLOB) 5.1 % HGB (Below 5.7)
[2017-08-05 22:02] LABS: C DIFF TOXIN NEGATIVE (NEGATIVE)
[2017-08-05 22:10] LABS: PROBE CHECK PASS; SPECIMEN PROCESSING CONTROL PASS
[2017-08-05 22:35] VITALS: BP 137/67
[2017-08-06 01:21] LABS: TROP-I INTERPRETATION NEGATIVE; TROPONIN-I 0.03 ng/mL (0.0-0.30)
[2017-08-06 04:49] VITALS: BP 137/64
[2017-08-06 07:30] VITALS: BP 121/58
[2017-08-06 07:37] LABS: EOSINOPHIL (%) 2.2 % (0-5); EOSINOPHIL COUNT 0.2 K/uL (0-0.3); HEMATOCRIT 31.3 % (38.0-50.0); IMMATURE GRANULOCYTE (%) 0.5 % (0.0-0.7); INSTRUMENT ABS NEUTROPHIL CT 6.2 K/uL; LYMPHOCYTE COUNT 1.2 K/uL (1.0-2.8); MCH 27.6 PG (29.0-34.0); MCHC 30.4 G/DL (30.0-36.0); MONOCYTE (%) 8.1 % (3-12); MONOCYTE COUNT 0.7 K/uL (0-0.8); NEUTROPHIL (%) 74.6 % (45-76); NEUTROPHIL COUNT 6.2 K/uL (1.8-6.4); PLATELET COUNT 326 K/uL (156-360); RBC DIS.WIDTH-CV 15.9 % (11.8-14.6); RBC DIS.WIDTH-SD 52.6 % (39-53); RED BLOOD COUNT 3.44 M/uL (4.00-5.50); WHITE BLOOD COUNT 8.2 K/uL (4.1-10.2)
[2017-08-06 07:57] LABS: ANION GAP 5 MEQ/L (2-14); CHLORIDE 104 MEQ/L (99-109); GFR ESTIMATE (CALCULATED) 48 mL/min/; GLUCOSE 107 mg/dL (70-99); SAMPLE HEMOLYSIS CHECK 0; SAMPLE ICTERIC CHECK 0; SAMPLE LIPEMIA CHECK 0; SODIUM 137 MEQ/L (136-147); UREA NITROGEN (BUN) 19 mg/dL (9-23)
[2017-08-06 08:35] LABS: TROP-I INTERPRETATION NEGATIVE; TROPONIN-I 0.03 ng/mL (0.0-0.30)
[2017-08-06 16:00] VITALS: BP 165/72
[2017-08-06 20:03] VITALS: BP 148/66
[2017-08-06 23:32] VITALS: BP 122/62
[2017-08-07 03:02] VITALS: BP 157/74
[2017-08-07 07:02] LABS: EOSINOPHIL (%) 4.1 % (0-5); EOSINOPHIL COUNT 0.3 K/uL (0-0.3); HEMATOCRIT 30.4 % (38.0-50.0); IMMATURE GRANULOCYTE (%) 0.3 % (0.0-0.7); INSTRUMENT ABS NEUTROPHIL CT 3.8 K/uL; LYMPHOCYTE COUNT 1.2 K/uL (1.0-2.8); MCH 27.2 PG (29.0-34.0); MCHC 29.9 G/DL (30.0-36.0); MEAN PLAT.VOLUME 10.1 uM^3 (9.0-12.4); MONOCYTE (%) 11.8 % (3-12); MONOCYTE COUNT 0.7 K/uL (0-0.8); NEUTROPHIL (%) 62.9 % (45-76); NEUTROPHIL COUNT 3.8 K/uL (1.8-6.4); PLATELET COUNT 331 K/uL (156-360); RBC DIS.WIDTH-CV 15.8 % (11.8-14.6); RBC DIS.WIDTH-SD 52.1 % (39-53); RED BLOOD COUNT 3.34 M/uL (4.00-5.50); WHITE BLOOD COUNT 6.1 K/uL (4.1-10.2)
[2017-08-07 07:20] VITALS: BP 134/85
[2017-08-07 07:28] LABS: ANION GAP 8 MEQ/L (2-14); CHLORIDE 107 MEQ/L (99-109); GFR ESTIMATE (CALCULATED) 42 mL/min/; GLUCOSE 89 mg/dL (70-99); POTASSIUM 4.1 MEQ/L (3.7-5.4); SAMPLE HEMOLYSIS CHECK 0; SAMPLE ICTERIC CHECK 0; SAMPLE LIPEMIA CHECK 0; SODIUM 141 MEQ/L (136-147); UREA NITROGEN (BUN) 18 mg/dL (9-23)
== END 2017-08-07 14:35 | disposition home or self-care (01) | DRG 387 ==
LOC: EME → EDBD 13:03 → EME 13:03 → EDOF 20:32 → 2EAST 20:32 → ENRESERV 20:37 → 2EAST 22:33
PROVIDERS: Emergency Medicine; Hospitalist
DX: K51.30 Ulcerative (chronic) rectosigmoiditis without complications (principal); E86.0 Dehydration; E86.1 Hypovolemia; K59.00 Constipation, unspecified; C67.9 Malignant neoplasm of bladder, unspecified; E78.5 Hyperlipidemia, unspecified; I12.9 Hypertensive chronic kidney disease with stage 1 through stage 4 chronic kidney disease, or unspecified chronic kidney disease; N18.9 Chronic kidney disease, unspecified; I48.0 Paroxysmal atrial fibrillation; I73.9 Peripheral vascular disease, unspecified; I25.10 Atherosclerotic heart disease of native coronary artery without angina pectoris; I25.82 Chronic total occlusion of coronary artery; G47.30 Sleep apnea, unspecified; F17.210 Nicotine dependence, cigarettes, uncomplicated; Z85.46 Personal history of malignant neoplasm of prostate; Z79.01 Long term (current) use of anticoagulants; Z86.73 Personal history of transient ischemic attack (TIA), and cerebral infarction without residual deficits; Z93.6 Other artificial openings of urinary tract status; Z79.82 Long term (current) use of aspirin
CPT/HCPCS: 72131; 74176; 80048; 80053; 81003; 82607; 82746; 83036; 83605; 83690; 84443; 84484; 85025; 87040; 87086; 87493; 87506; 93005; 93306; 99281; 99285; J0696; J1956; J7030; J7050; S0030

== ENCOUNTER 2017-09-21 16:43 | Emergency (ER) | payer OTHER, BC ==
[~2017-09-21] VITALS: Ht 175.3 cm; Wt 83.0 kg
[~2017-09-21 16:43] MED LIST changes: +OMEGA-31000 M1 PO
[2017-09-21 17:49] LABS: EOSINOPHIL (%) 0.8 % (0-5); EOSINOPHIL COUNT 0.1 K/uL (0-0.3); HEMATOCRIT 36.6 % (38.0-50.0); IMMATURE GRANULOCYTE (%) 0.4 % (0.0-0.7); INSTRUMENT ABS NEUTROPHIL CT 6.8 K/uL; LYMPHOCYTE COUNT 0.7 K/uL (1.0-2.8); MCH 25.3 PG (29.0-34.0); MCHC 30.6 G/DL (30.0-36.0); MCV 82.8 FL (86-99); MEAN PLAT.VOLUME 10.2 uM^3 (9.0-12.4); MONOCYTE (%) 7.8 % (3-12); MONOCYTE COUNT 0.7 K/uL (0-0.8); NEUTROPHIL (%) 81.9 % (45-76); NEUTROPHIL COUNT 6.8 K/uL (1.8-6.4); PLATELET COUNT 346 K/uL (156-360); RBC DIS.WIDTH-CV 15.1 % (11.8-14.6); RBC DIS.WIDTH-SD 45.8 % (39-53); RED BLOOD COUNT 4.42 M/uL (4.00-5.50); WHITE BLOOD COUNT 8.3 K/uL (4.1-10.2)
[2017-09-21 18:00] LABS: CHLORIDE 101 mEq/L (99-109); SODIUM 137 mEq/L (136-147)
[2017-09-21 18:02] LABS: GLUCOSE 129 mg/dL (70-99)
[2017-09-21 18:04] LABS: ANION GAP 12 MEQ/L (2-14); TOTAL BILIRUBIN 0.4 mg/dL (0.0-1.0)
[2017-09-21 18:06] LABS: ALKALINE PHOSPHATASE 129 IU/L (3-129); GFR ESTIMATE (CALCULATED) 45 mL/min/
[2017-09-21 18:07] LABS: UREA NITROGEN (BUN) 21 mg/dL (9-23)
[2017-09-21 18:10] LABS: LIPASE 16 U/L (1.0-51.0)
[2017-09-21 19:53] LABS: ADD MIUA? YES; BILIRUBIN NEGATIVE; BLOOD SMALL; COLOR YELLOW ((YELLOW)); GLUCOSE (STRIP) NEGATIVE; KETONES NEGATIVE; LEUKOCYTES MODERATE; LEUKOCYTES SMALL; NITRITE NEGATIVE; NITRITE POSITIVE; PROTEIN (STRIP) 100; SPECIFIC GRAVITY 1.012 (1.000-1.030); SPECIFIC GRAVITY 1.015 (1.000-1.030); UROBILINOGEN 0.2 MG/DL (0.2-1.0)
[2017-09-21 20:04] LABS: EPITHELIAL CELLS NONE SEEN /HPF; MUCUS TRACE /LPF; UCUL ADDED? YES; WHITE BLOOD CELLS 15-20 /HPF (0-5)
[2017-09-21 20:19] LABS: BACTERIA 1+ /HPF
[2017-09-21 20:20] LABS: CASTS NONE SEEN /LPF; CRYSTALS NONE SEEN
[2017-09-21 20:23] LABS: EPITHELIAL CELLS NONE SEEN /HPF; RED BLOOD CELLS 0-5 /HPF (0-5); WHITE BLOOD CELLS 0-5 /HPF (0-5)
[2017-09-21 20:24] LABS: MUCUS RARE /LPF
[2017-09-21 20:25] LABS: BACTERIA 1+ /HPF; UCUL ADDED? NO
[2017-09-21 20:26] LABS: CASTS PRESENT /LPF; CRYSTALS NONE SEEN; HYALINE CASTS RARE /LPF
[2017-09-21] MEDS ORDERED: ZOFRAN ODT4 MG PO (21:43)
[2017-09-21] MEDS ORDERED: CEFTIN500 MG PO (21:43)
[2017-09-21 22:58] VITALS: BP 138/72
== END 2017-09-21 23:00 | disposition home or self-care (01) ==
LOC: EME 16:43
PROVIDERS: Emergency Medicine
DX: R11.2 Nausea with vomiting, unspecified (principal); N39.0 Urinary tract infection, site not specified; Z98.890 Other specified postprocedural states; Z93.3 Colostomy status; Z93.6 Other artificial openings of urinary tract status; Z85.46 Personal history of malignant neoplasm of prostate; Z85.51 Personal history of malignant neoplasm of bladder; I10 Essential (primary) hypertension; F17.200 Nicotine dependence, unspecified, uncomplicated
CPT/HCPCS: 71010; 80053; 81003; 83690; 85025; 87077; 87086; 87186; 99281; 99285; J2270; J2405; J7030

== ENCOUNTER 2017-09-24 09:03 | Inpatient (IN) | payer OTHER, BC ==
[~2017-09-24] VITALS: Ht 182.9 cm; Wt 79.6 kg
[~2017-09-24 09:03] MED LIST changes: +CEFTIN500 MG PO; +ZOFRAN ODT4 MG PO
[2017-09-24 10:08] LABS: EOSINOPHIL (%) 0.4 % (0-5); EOSINOPHIL COUNT 0.1 K/uL (0-0.3); HEMATOCRIT 35.6 % (38.0-50.0); IMMATURE GRANULOCYTE (%) 0.6 % (0.0-0.7); IMMATURE GRANULOCYTE COUNT 0.1 K/uL; INSTRUMENT ABS NEUTROPHIL CT 11.1 K/uL; MCH 25.3 PG (29.0-34.0); MCHC 30.3 G/DL (30.0-36.0); MCV 83.4 FL (86-99); MEAN PLAT.VOLUME 10.3 uM^3 (9.0-12.4); MONOCYTE (%) 8.9 % (3-12); MONOCYTE COUNT 1.2 K/uL (0-0.8); NEUTROPHIL (%) 82.6 % (45-76); NEUTROPHIL COUNT 11.1 K/uL (1.8-6.4); PLATELET COUNT 386 K/uL (156-360); RBC DIS.WIDTH-CV 15.5 % (11.8-14.6); RED BLOOD COUNT 4.27 M/uL (4.00-5.50); WHITE BLOOD COUNT 13.4 K/uL (4.1-10.2)
[2017-09-24 10:13] LABS: INTER. NORMALIZED RATIO 1.3; PROTHROMBIN TIME 14.3 SEC (10.2-12.9)
[2017-09-24 10:16] LABS: PTT 26.2 SEC (25-37)
[2017-09-24 10:21] LABS: CHLORIDE 102 mEq/L (99-109); SODIUM 136 mEq/L (136-147)
[2017-09-24 10:23] LABS: GLUCOSE 118 mg/dL (70-99)
[2017-09-24 10:25] LABS: ANION GAP 9 MEQ/L (2-14); TOTAL BILIRUBIN 0.4 mg/dL (0.0-1.0)
[2017-09-24 10:27] LABS: GFR ESTIMATE (CALCULATED) 37 mL/min/
[2017-09-24 10:28] LABS: UREA NITROGEN (BUN) 33 mg/dL (9-23)
[2017-09-24 10:30] LABS: LIPASE 28 U/L (1.0-51.0)
[2017-09-24 10:31] LABS: ALKALINE PHOSPHATASE 185 IU/L (3-129); TROP-I INTERPRETATION NEGATIVE; TROPONIN-I 0.02 ng/mL (0.0-0.30)
[2017-09-24] MEDS ORDERED: ZOFRAN ODT4 MG PO (11:21)
[2017-09-24 14:25] VITALS: BP 114/60
[2017-09-24 16:35] LABS: TROP-I INTERPRETATION NEGATIVE; TROPONIN-I 0.02 ng/mL (0.0-0.30)
[2017-09-24 19:18] VITALS: BP 127/60
[2017-09-24 22:51] LABS: TROP-I INTERPRETATION NEGATIVE; TROPONIN-I 0.03 ng/mL (0.0-0.30)
[2017-09-24 23:00] VITALS: BP 133/74
[2017-09-24 23:33] LABS: HEMATOCRIT 32.8 % (38.0-50.0); MCH 25.5 PG (29.0-34.0); MCHC 30.8 G/DL (30.0-36.0); MCV 82.8 FL (86-99); MEAN PLAT.VOLUME 10.5 uM^3 (9.0-12.4); PLATELET COUNT 357 K/uL (156-360); RBC DIS.WIDTH-CV 15.5 % (11.8-14.6); RBC DIS.WIDTH-SD 47.1 % (39-53); RED BLOOD COUNT 3.96 M/uL (4.00-5.50); WHITE BLOOD COUNT 13.3 K/uL (4.1-10.2)
[2017-09-25 04:00] VITALS: BP 127/64
[2017-09-25 06:33] LABS: HEMATOCRIT 31.6 % (38.0-50.0); MCH 24.9 PG (29.0-34.0); MCHC 30.1 G/DL (30.0-36.0); MCV 82.7 FL (86-99); MEAN PLAT.VOLUME 10.5 uM^3 (9.0-12.4); MONOCYTE (%) 10.5 % (3-12); PLATELET COUNT 383 K/uL (156-360); RBC DIS.WIDTH-CV 15.3 % (11.8-14.6); RBC DIS.WIDTH-SD 46.5 % (39-53); RED BLOOD COUNT 3.82 M/uL (4.00-5.50); WHITE BLOOD COUNT 12.5 K/uL (4.1-10.2)
[2017-09-25 06:34] LABS: BASOPHIL COUNT 0.1 K/uL (0-0.1); EOSINOPHIL (%) 1.2 % (0-5); EOSINOPHIL COUNT 0.2 K/uL (0-0.3); IMMATURE GRANULOCYTE (%) 0.5 % (0.0-0.7); IMMATURE GRANULOCYTE COUNT 0.1 K/uL; INSTRUMENT ABS NEUTROPHIL CT 10.1 K/uL; LYMPHOCYTE COUNT 0.9 K/uL (1.0-2.8); MONOCYTE COUNT 1.3 K/uL (0-0.8); NEUTROPHIL (%) 80.4 % (45-76); NEUTROPHIL COUNT 10.1 K/uL (1.8-6.4)
[2017-09-25 06:47] LABS: ANION GAP 8 MEQ/L (2-14); CHLORIDE 102 MEQ/L (99-109); GFR ESTIMATE (CALCULATED) 37 mL/min/; GLUCOSE 94 mg/dL (70-99); POTASSIUM 4.6 MEQ/L (3.7-5.4); SAMPLE HEMOLYSIS CHECK 0; SAMPLE ICTERIC CHECK 0; SAMPLE LIPEMIA CHECK 0; SODIUM 136 MEQ/L (136-147); UREA NITROGEN (BUN) 26 mg/dL (9-23)
[2017-09-25 06:53] VITALS: BP 136/60
[2017-09-25 08:49] LABS: INTERNAL CONTROL VALID? YES
[2017-09-25 08:50] LABS: INTERNAL CONTROL VALID? YES
[2017-09-25 15:20] VITALS: BP 123/61
[2017-09-25 19:31] VITALS: BP 124/55
[2017-09-26] VITALS (7 sets, daily range): BP systolic 119–150; BP diastolic 58–74
[2017-09-26 06:16] LABS: HEMATOCRIT 32.5 % (38.0-50.0); MCH 25.3 PG (29.0-34.0); MCHC 30.5 G/DL (30.0-36.0); MCV 83.1 FL (86-99); MEAN PLAT.VOLUME 10.3 uM^3 (9.0-12.4); PLATELET COUNT 365 K/uL (156-360); RBC DIS.WIDTH-CV 15.6 % (11.8-14.6); RBC DIS.WIDTH-SD 47.4 % (39-53); RED BLOOD COUNT 3.91 M/uL (4.00-5.50); WHITE BLOOD COUNT 8.3 K/uL (4.1-10.2)
[2017-09-26 06:48] LABS: ANION GAP 9 MEQ/L (2-14); CHLORIDE 103 MEQ/L (99-109); GFR ESTIMATE (CALCULATED) 31 mL/min/; GLUCOSE 86 mg/dL (70-99); POTASSIUM 4.6 MEQ/L (3.7-5.4); SAMPLE HEMOLYSIS CHECK 0; SAMPLE ICTERIC CHECK 0; SAMPLE LIPEMIA CHECK 0; SODIUM 137 MEQ/L (136-147); UREA NITROGEN (BUN) 29 mg/dL (9-23)
[2017-09-27 04:50] VITALS: BP 114/60
[2017-09-27 06:16] LABS: HEMATOCRIT 31.2 % (38.0-50.0); MCH 25.1 PG (29.0-34.0); MCHC 30.4 G/DL (30.0-36.0); MCV 82.5 FL (86-99); MEAN PLAT.VOLUME 10.3 uM^3 (9.0-12.4); PLATELET COUNT 414 K/uL (156-360); RBC DIS.WIDTH-CV 15.4 % (11.8-14.6); RBC DIS.WIDTH-SD 46.7 % (39-53); RED BLOOD COUNT 3.78 M/uL (4.00-5.50); WHITE BLOOD COUNT 7.2 K/uL (4.1-10.2)
[2017-09-27 07:05] VITALS: BP 141/65
[2017-09-27 07:44] VITALS: BP 141/65
[2017-09-27 10:40] VITALS: BP 159/69
[2017-09-27] MEDS ORDERED: CEFDINIR300 MG PO (10:58)
== END 2017-09-27 13:20 | disposition home or self-care (01) | DRG 194 ==
LOC: EME → EDBD 09:03 → EME 09:03 → EDOF 10:57 → 5SOUTH 10:57 → ENRESERV 11:09 → 5SOUTH 14:02
PROVIDERS: Emergency Medicine; Hospitalist; Internal Medicine
PROC: 0T25X0Z Change Drainage Device in Kidney, External Approach (ICD-10-PCS; principal; 2017-09-26)
DX: J15.9 Unspecified bacterial pneumonia (principal); C67.9 Malignant neoplasm of bladder, unspecified; D64.9 Anemia, unspecified; N18.3 Chronic kidney disease, stage 3 (moderate); I12.9 Hypertensive chronic kidney disease with stage 1 through stage 4 chronic kidney disease, or unspecified chronic kidney disease; N13.30 Unspecified hydronephrosis; Y95 Nosocomial condition; F17.200 Nicotine dependence, unspecified, uncomplicated; E78.5 Hyperlipidemia, unspecified; R18.8 Other ascites; I73.9 Peripheral vascular disease, unspecified; I48.0 Paroxysmal atrial fibrillation; Z79.01 Long term (current) use of anticoagulants; Z85.46 Personal history of malignant neoplasm of prostate; Z85.51 Personal history of malignant neoplasm of bladder; Z93.3 Colostomy status; Z93.2 Ileostomy status; Z93.6 Other artificial openings of urinary tract status
CPT/HCPCS: 36415; 50435; 71010; 71250; 74022; 74176; 80048; 80053; 81003; 83605; 83690; 83735; 84100; 84484; 85025; 85027; 85610; 85730; 86850; 86900; 86901; 87040; 87070; 87077; 87086; 87186; 87205; 87449; 87502; 93005; 99202; 99281; 99285; C1725; C1769; J0456; J0692; J2270; J2405; J2543; J3370; J7030; J7050

== ENCOUNTER 2017-10-04 13:51 | Emergency (ER) | payer OTHER, BC ==
[~2017-10-04] VITALS: Ht 175.3 cm; Wt 78.3 kg
[~2017-10-04 13:51] MED LIST changes: +CEFDINIR300 MG PO
[2017-10-04 17:33] LABS: HEMATOCRIT 32.1 % (38.0-50.0); MCH 25.2 PG (29.0-34.0); MCHC 30.8 G/DL (30.0-36.0); MCV 81.7 FL (86-99); MEAN PLAT.VOLUME 9.9 uM^3 (9.0-12.4); PLATELET COUNT 428 K/uL (156-360); RBC DIS.WIDTH-CV 15.4 % (11.8-14.6); RBC DIS.WIDTH-SD 45.8 % (39-53); RED BLOOD COUNT 3.93 M/uL (4.00-5.50); WHITE BLOOD COUNT 12.3 K/uL (4.1-10.2)
[2017-10-04 17:40] LABS: CHLORIDE 104 mEq/L (99-109); POTASSIUM 4.5 mEq/L (3.7-5.4); SODIUM 138 mEq/L (136-147)
[2017-10-04 17:42] LABS: GLUCOSE 106 mg/dL (70-99)
[2017-10-04 17:43] LABS: ADD MIUA? YES; BILIRUBIN NEGATIVE; BLOOD LARGE; COLOR YELLOW ((YELLOW)); GLUCOSE (STRIP) NEGATIVE; KETONES 5; LEUKOCYTES SMALL; NITRITE POSITIVE; PROTEIN (STRIP) 100; SPECIFIC GRAVITY 1.015 (1.000-1.030); UROBILINOGEN 0.2 MG/DL (0.2-1.0)
[2017-10-04 17:44] LABS: ANION GAP 13 MEQ/L (2-14); TOTAL BILIRUBIN 0.4 mg/dL (0.0-1.0)
[2017-10-04 17:46] LABS: ALKALINE PHOSPHATASE 155 IU/L (3-129); GFR ESTIMATE (CALCULATED) 19 mL/min/
[2017-10-04 17:47] LABS: UREA NITROGEN (BUN) 42 mg/dL (9-23)
[2017-10-04 18:32] LABS: RED BLOOD CELLS TNTC /HPF (0-5)
[2017-10-04 18:35] LABS: BACTERIA 1+ /HPF; EPITHELIAL CELLS NONE SEEN /HPF; MUCUS RARE /LPF; UCUL ADDED? YES
[2017-10-04 18:36] LABS: AMORPHOUS URATES CRYSTALS 2+; CASTS NONE SEEN /LPF; CRYSTALS PRESENT; OTHER YEAST
[2017-10-04 19:07] LABS: COLOR BROWN ((YELLOW))
[2017-10-04 19:08] LABS: ADD MIUA? YES; BILIRUBIN MODERATE; BLOOD LARGE; GLUCOSE (STRIP) NEGATIVE; KETONES NEGATIVE; LEUKOCYTES MODERATE; NITRITE POSITIVE; PROTEIN (STRIP) 100; UROBILINOGEN 0.2 MG/DL (0.2-1.0)
[2017-10-04 19:19] LABS: ICTOTEST NEGATIVE
[2017-10-04 19:36] LABS: RED BLOOD CELLS TNTC /HPF (0-5); UCUL ADDED? YES
[2017-10-04 20:24] VITALS: BP 152/70
== END 2017-10-04 20:26 | disposition home or self-care (01) ==
LOC: EME 13:51
PROVIDERS: Nurse Practitioner Family
DX: N99.522 Malfunction of incontinent external stoma of urinary tract (principal); I12.9 Hypertensive chronic kidney disease with stage 1 through stage 4 chronic kidney disease, or unspecified chronic kidney disease; N17.9 Acute kidney failure, unspecified; N18.9 Chronic kidney disease, unspecified; R31.9 Hematuria, unspecified; D64.9 Anemia, unspecified; Z85.51 Personal history of malignant neoplasm of bladder; R11.0 Nausea; F17.200 Nicotine dependence, unspecified, uncomplicated
CPT/HCPCS: 80053; 81003; 83605; 85027; 87040; 87077; 87086 GA; 87186; 99281; 99284

== ENCOUNTER 2017-10-06 12:13 | Inpatient (IN) | payer OTHER, BC ==
[~2017-10-06] VITALS: Ht 175.3 cm; Wt 78.0 kg
[2017-10-06 13:15] LABS: BASOPHIL COUNT 0.1 K/uL (0-0.1); EOSINOPHIL (%) 0.2 % (0-5); HEMATOCRIT 37.4 % (38.0-50.0); IMMATURE GRANULOCYTE (%) 0.5 % (0.0-0.7); IMMATURE GRANULOCYTE COUNT 0.1 K/uL; INSTRUMENT ABS NEUTROPHIL CT 7.8 K/uL; LYMPHOCYTE COUNT 0.8 K/uL (1.0-2.8); MCH 24.7 PG (29.0-34.0); MCHC 30.7 G/DL (30.0-36.0); MCV 80.4 FL (86-99); MEAN PLAT.VOLUME 10.9 uM^3 (9.0-12.4); MONOCYTE (%) 11.1 % (3-12); MONOCYTE COUNT 1.1 K/uL (0-0.8); NEUTROPHIL (%) 79.6 % (45-76); NEUTROPHIL COUNT 7.8 K/uL (1.8-6.4); PLATELET COUNT 511 K/uL (156-360); RBC DIS.WIDTH-CV 15.6 % (11.8-14.6); RBC DIS.WIDTH-SD 45.6 % (39-53); RED BLOOD COUNT 4.65 M/uL (4.00-5.50); WHITE BLOOD COUNT 9.8 K/uL (4.1-10.2)
[2017-10-06 13:17] LABS: CHLORIDE 102 mEq/L (99-109); POTASSIUM 4.1 mEq/L (3.7-5.4); SODIUM 138 mEq/L (136-147)
[2017-10-06 13:19] LABS: GLUCOSE 117 mg/dL (70-99)
[2017-10-06 13:20] LABS: ANION GAP 16 MEQ/L (2-14)
[2017-10-06 13:23] LABS: GFR ESTIMATE (CALCULATED) 27 mL/min/; UREA NITROGEN (BUN) 41 mg/dL (9-23)
[2017-10-06 13:46] LABS: LIPASE 60 U/L (1.0-51.0)
[2017-10-06 14:38] LABS: ADD MIUA? YES; BILIRUBIN NEGATIVE; BLOOD LARGE; COLOR YELLOW ((YELLOW)); GLUCOSE (STRIP) NEGATIVE; KETONES NEGATIVE; LEUKOCYTES LARGE; NITRITE NEGATIVE; PROTEIN (STRIP) 100; SPECIFIC GRAVITY 1.014 (1.000-1.030); UROBILINOGEN 0.2 MG/DL (0.2-1.0)
[2017-10-06 14:48] LABS: BACTERIA 1+ /HPF; BUDDING YEAST 4+; CALCIUM OXALATE CRYSTALS 4+ /HPF; EPITHELIAL CELLS NONE SEEN /HPF; MUCUS TRACE /LPF; RED BLOOD CELLS TNTC /HPF (0-5); UCUL ADDED? YES; UNCLASSIFIED CRYSTALS 4+ /HPF; WHITE BLOOD CELLS TNTC /HPF (0-5)
[2017-10-06] MEDS ORDERED: PROZAC20 MG PO (15:18)
[2017-10-06 17:15] VITALS: BP 141/67
[2017-10-06 23:45] VITALS: BP 169/71
[2017-10-07 06:42] LABS: BASOPHIL COUNT 0.1 K/uL (0-0.1); EOSINOPHIL (%) 0.2 % (0-5); HEMATOCRIT 34.2 % (38.0-50.0); IMMATURE GRANULOCYTE (%) 0.3 % (0.0-0.7); INSTRUMENT ABS NEUTROPHIL CT 6.7 K/uL; MCH 25.2 PG (29.0-34.0); MCHC 30.4 G/DL (30.0-36.0); MCV 82.8 FL (86-99); MEAN PLAT.VOLUME 10.5 uM^3 (9.0-12.4); MONOCYTE COUNT 1.1 K/uL (0-0.8); NEUTROPHIL (%) 75.5 % (45-76); NEUTROPHIL COUNT 6.7 K/uL (1.8-6.4); PLATELET COUNT 436 K/uL (156-360); RBC DIS.WIDTH-CV 15.6 % (11.8-14.6); RBC DIS.WIDTH-SD 47.3 % (39-53); RED BLOOD COUNT 4.13 M/uL (4.00-5.50); WHITE BLOOD COUNT 8.9 K/uL (4.1-10.2)
[2017-10-07 07:05] LABS: ANION GAP 10 MEQ/L (2-14); CHLORIDE 107 MEQ/L (99-109); GFR ESTIMATE (CALCULATED) 27 mL/min/; GLUCOSE 90 mg/dL (70-99); POTASSIUM 4.6 MEQ/L (3.7-5.4); SAMPLE HEMOLYSIS CHECK 0; SAMPLE ICTERIC CHECK 0; SAMPLE LIPEMIA CHECK 0; SODIUM 142 MEQ/L (136-147); UREA NITROGEN (BUN) 43 mg/dL (9-23)
[2017-10-07 07:58] VITALS: BP 164/78; BP 1647/68
[2017-10-07 16:30] VITALS: BP 130/610
[2017-10-07 17:00] LABS: URIC ACID 6.6 mg/dL (3.1-9.2)
[2017-10-07 18:21] LABS: INTERNAL CONTROL VALID? YES
[2017-10-08 00:03] VITALS: BP 148/67
[2017-10-08 06:28] LABS: HEMATOCRIT 29.8 % (38.0-50.0); MCH 24.7 PG (29.0-34.0); MCHC 29.9 G/DL (30.0-36.0); MCV 82.5 FL (86-99); MEAN PLAT.VOLUME 10.4 uM^3 (9.0-12.4); PLATELET COUNT 377 K/uL (156-360); RBC DIS.WIDTH-CV 15.3 % (11.8-14.6); RBC DIS.WIDTH-SD 46.5 % (39-53); RED BLOOD COUNT 3.61 M/uL (4.00-5.50); WHITE BLOOD COUNT 7.1 K/uL (4.1-10.2)
[2017-10-08 07:11] LABS: ANION GAP 11 MEQ/L (2-14); CHLORIDE 108 MEQ/L (99-109); GFR ESTIMATE (CALCULATED) 30 mL/min/; POTASSIUM 3.8 MEQ/L (3.7-5.4); SAMPLE HEMOLYSIS CHECK 0; SAMPLE ICTERIC CHECK 0; SAMPLE LIPEMIA CHECK 0; SODIUM 143 MEQ/L (136-147); UREA NITROGEN (BUN) 33 mg/dL (9-23)
[2017-10-08 07:12] LABS: GLUCOSE 115 mg/dL (70-99)
[2017-10-08 07:44] VITALS: BP 160/70
[2017-10-08 13:31] LABS: HEMATOCRIT 31.3 % (38.0-50.0); MCV 82.8 FL (86-99)
[2017-10-08 14:51] VITALS: BP 150/61
[2017-10-08 22:42] LABS: INTER. NORMALIZED RATIO 1.3; PROTHROMBIN TIME 15.3 SEC (10.2-12.9)
[2017-10-09] VITALS: BP 145/58
[2017-10-09 02:53] LABS: HEMATOCRIT 29.4 % (38.0-50.0); MCHC 30.6 G/DL (30.0-36.0); MCV 81.7 FL (86-99); MEAN PLAT.VOLUME 10.9 uM^3 (9.0-12.4); PLATELET COUNT 387 K/uL (156-360); RBC DIS.WIDTH-CV 15.2 % (11.8-14.6); RBC DIS.WIDTH-SD 45.4 % (39-53); WHITE BLOOD COUNT 6.8 K/uL (4.1-10.2)
[2017-10-09 07:24] LABS: ANION GAP 8 MEQ/L (2-14); CHLORIDE 106 MEQ/L (99-109); GFR ESTIMATE (CALCULATED) 37 mL/min/; GLUCOSE 137 mg/dL (70-99); POTASSIUM 4.1 MEQ/L (3.7-5.4); SAMPLE HEMOLYSIS CHECK 0; SAMPLE ICTERIC CHECK 0; SAMPLE LIPEMIA CHECK 0; SODIUM 146 MEQ/L (136-147); UREA NITROGEN (BUN) 21 mg/dL (9-23)
[2017-10-09 07:34] VITALS: BP 124/76
[2017-10-09 14:06] LABS: HEMATOCRIT 30.4 % (38.0-50.0); MCH 24.7 PG (29.0-34.0); MCHC 29.6 G/DL (30.0-36.0); MCV 83.3 FL (86-99); MEAN PLAT.VOLUME 10.6 uM^3 (9.0-12.4); PLATELET COUNT 358 K/uL (156-360); RBC DIS.WIDTH-CV 15.3 % (11.8-14.6); RBC DIS.WIDTH-SD 46.9 % (39-53); RED BLOOD COUNT 3.65 M/uL (4.00-5.50); WHITE BLOOD COUNT 7.4 K/uL (4.1-10.2)
[2017-10-09 15:35] VITALS: BP 161/71
[2017-10-09 23:46] VITALS: BP 135/66
[2017-10-10 01:37] LABS: HEMATOCRIT 28.1 % (38.0-50.0); MCH 24.8 PG (29.0-34.0); MCHC 29.9 G/DL (30.0-36.0); MCV 82.9 FL (86-99); MEAN PLAT.VOLUME 10.6 uM^3 (9.0-12.4); PLATELET COUNT 303 K/uL (156-360); RBC DIS.WIDTH-CV 15.2 % (11.8-14.6); RBC DIS.WIDTH-SD 46.2 % (39-53); RED BLOOD COUNT 3.39 M/uL (4.00-5.50); WHITE BLOOD COUNT 6.7 K/uL (4.1-10.2)
[2017-10-10 06:41] LABS: HEMATOCRIT 29.2 % (38.0-50.0); MCH 24.1 PG (29.0-34.0); MCHC 29.1 G/DL (30.0-36.0); MCV 82.7 FL (86-99); MEAN PLAT.VOLUME 10.8 uM^3 (9.0-12.4); PLATELET COUNT 335 K/uL (156-360); RBC DIS.WIDTH-CV 15.1 % (11.8-14.6); RBC DIS.WIDTH-SD 46.2 % (39-53); RED BLOOD COUNT 3.53 M/uL (4.00-5.50)
[2017-10-10 06:57] LABS: ANION GAP 9 MEQ/L (2-14); CHLORIDE 107 MEQ/L (99-109); GFR ESTIMATE (CALCULATED) 48 mL/min/; GLUCOSE 121 mg/dL (70-99); POTASSIUM 3.9 MEQ/L (3.7-5.4); SAMPLE HEMOLYSIS CHECK 0; SAMPLE ICTERIC CHECK 0; SAMPLE LIPEMIA CHECK 0; SODIUM 143 MEQ/L (136-147); UREA NITROGEN (BUN) 15 mg/dL (9-23)
[2017-10-10 07:58] VITALS: BP 128/58
[2017-10-10 14:07] LABS: HEMATOCRIT 28.7 % (38.0-50.0); MCH 24.4 PG (29.0-34.0); MCHC 29.6 G/DL (30.0-36.0); MCV 82.5 FL (86-99); MEAN PLAT.VOLUME 10.7 uM^3 (9.0-12.4); PLATELET COUNT 326 K/uL (156-360); RBC DIS.WIDTH-CV 15.1 % (11.8-14.6); RBC DIS.WIDTH-SD 45.9 % (39-53); RED BLOOD COUNT 3.48 M/uL (4.00-5.50); WHITE BLOOD COUNT 7.4 K/uL (4.1-10.2)
[2017-10-10 23:42] VITALS: BP 143/66
[2017-10-11 01:16] LABS: HEMATOCRIT 28.7 % (38.0-50.0); MCH 24.7 PG (29.0-34.0); MCHC 30.3 G/DL (30.0-36.0); MCV 81.5 FL (86-99); MEAN PLAT.VOLUME 10.3 uM^3 (9.0-12.4); PLATELET COUNT 319 K/uL (156-360); RBC DIS.WIDTH-CV 15.1 % (11.8-14.6); RBC DIS.WIDTH-SD 44.7 % (39-53); RED BLOOD COUNT 3.52 M/uL (4.00-5.50); WHITE BLOOD COUNT 7.5 K/uL (4.1-10.2)
[2017-10-11 06:12] LABS: HEMATOCRIT 29.6 % (38.0-50.0); MCH 24.8 PG (29.0-34.0); MCHC 30.1 G/DL (30.0-36.0); MCV 82.5 FL (86-99); MEAN PLAT.VOLUME 11.2 uM^3 (9.0-12.4); PLATELET COUNT 321 K/uL (156-360); RBC DIS.WIDTH-CV 15.2 % (11.8-14.6); RBC DIS.WIDTH-SD 46.1 % (39-53); RED BLOOD COUNT 3.59 M/uL (4.00-5.50); WHITE BLOOD COUNT 7.2 K/uL (4.1-10.2)
[2017-10-11 06:34] LABS: ANION GAP 9 MEQ/L (2-14); CHLORIDE 106 MEQ/L (99-109); GFR ESTIMATE (CALCULATED) 48 mL/min/; GLUCOSE 106 mg/dL (70-99); POTASSIUM 3.6 MEQ/L (3.7-5.4); SAMPLE HEMOLYSIS CHECK 0; SAMPLE ICTERIC CHECK 0; SAMPLE LIPEMIA CHECK 0; SODIUM 142 MEQ/L (136-147); UREA NITROGEN (BUN) 11 mg/dL (9-23)
[2017-10-11 07:34] VITALS: BP 140/62
[2017-10-11 13:45] LABS: HEMATOCRIT 28.2 % (38.0-50.0); MCH 25.2 PG (29.0-34.0); MCHC 30.5 G/DL (30.0-36.0); MCV 82.7 FL (86-99); PLATELET COUNT 298 K/uL (156-360); RBC DIS.WIDTH-CV 15.2 % (11.8-14.6); RBC DIS.WIDTH-SD 46.1 % (39-53); RED BLOOD COUNT 3.41 M/uL (4.00-5.50); WHITE BLOOD COUNT 7.2 K/uL (4.1-10.2)
[2017-10-11 16:00] VITALS: BP 169/72
[2017-10-11 23:55] VITALS: BP 158/67
[2017-10-12 07:02] LABS: EOSINOPHIL COUNT 0.1 K/uL (0-0.3); HEMATOCRIT 28.9 % (38.0-50.0); IMMATURE GRANULOCYTE (%) 0.4 % (0.0-0.7); INSTRUMENT ABS NEUTROPHIL CT 5.5 K/uL; LYMPHOCYTE COUNT 0.5 K/uL (1.0-2.8); MCH 24.7 PG (29.0-34.0); MCHC 30.1 G/DL (30.0-36.0); MCV 82.1 FL (86-99); MEAN PLAT.VOLUME 11.1 uM^3 (9.0-12.4); MONOCYTE (%) 9.6 % (3-12); MONOCYTE COUNT 0.7 K/uL (0-0.8); NEUTROPHIL COUNT 5.5 K/uL (1.8-6.4); PLATELET COUNT 305 K/uL (156-360); RBC DIS.WIDTH-CV 15.3 % (11.8-14.6); RBC DIS.WIDTH-SD 45.5 % (39-53); RED BLOOD COUNT 3.52 M/uL (4.00-5.50); WHITE BLOOD COUNT 6.8 K/uL (4.1-10.2)
[2017-10-12 07:29] LABS: ALKALINE PHOSPHATASE 104 IU/L (3-129); ANION GAP 7 MEQ/L (2-14); CHLORIDE 104 MEQ/L (99-109); DIRECT BILIRUBIN 0.1 mg/dL (0.0-0.3); GFR ESTIMATE (CALCULATED) 48 mL/min/; GLUCOSE 111 mg/dL (70-99); POTASSIUM 4.3 MEQ/L (3.7-5.4); PREALBUMIN 12.6 mg/dL (10-40); SAMPLE HEMOLYSIS CHECK 0; SAMPLE ICTERIC CHECK 0; SAMPLE LIPEMIA CHECK 0; SODIUM 140 MEQ/L (136-147); TOTAL BILIRUBIN 0.3 MG/DL (0.0-1.0); TRIGLYCERIDES 136 MG/DL (Normal: <150); UREA NITROGEN (BUN) 13 mg/dL (9-23)
[2017-10-12 07:34] LABS: MAGNESIUM 0.9 mg/dl (1.3-2.7)
[2017-10-12 07:46] VITALS: BP 125/65
[2017-10-12 16:55] VITALS: BP 177/71
[2017-10-12 23:31] VITALS: BP 182/82
[2017-10-13 07:53] LABS: ANION GAP 9 MEQ/L (2-14); CHLORIDE 107 MEQ/L (99-109); GFR ESTIMATE (CALCULATED) 52 mL/min/; GLUCOSE 129 mg/dL (70-99); POTASSIUM 3.7 MEQ/L (3.7-5.4); SAMPLE HEMOLYSIS CHECK 0; SAMPLE ICTERIC CHECK 0; SAMPLE LIPEMIA CHECK 0; SODIUM 141 MEQ/L (136-147); UREA NITROGEN (BUN) 19 mg/dL (9-23)
[2017-10-13 07:58] LABS: MAGNESIUM 1.9 mg/dl (1.3-2.7)
[2017-10-13 08:25] VITALS: BP 158/76
[2017-10-13 15:58] VITALS: BP 139/70
[2017-10-13 23:23] VITALS: BP 122/78
[2017-10-14 05:41] LABS: EOSINOPHIL (%) 0.1 % (0-5); HEMATOCRIT 28.3 % (38.0-50.0); IMMATURE GRANULOCYTE (%) 0.3 % (0.0-0.7); INSTRUMENT ABS NEUTROPHIL CT 11.3 K/uL; LYMPHOCYTE COUNT 0.5 K/uL (1.0-2.8); MCH 24.6 PG (29.0-34.0); MCV 81.8 FL (86-99); MEAN PLAT.VOLUME 11.3 uM^3 (9.0-12.4); MONOCYTE (%) 5.7 % (3-12); MONOCYTE COUNT 0.7 K/uL (0-0.8); NEUTROPHIL (%) 90.1 % (45-76); NEUTROPHIL COUNT 11.3 K/uL (1.8-6.4); PLATELET COUNT 308 K/uL (156-360); RBC DIS.WIDTH-CV 15.7 % (11.8-14.6); RBC DIS.WIDTH-SD 46.5 % (39-53); RED BLOOD COUNT 3.46 M/uL (4.00-5.50); WHITE BLOOD COUNT 12.6 K/uL (4.1-10.2)
[2017-10-14 06:15] LABS: ALKALINE PHOSPHATASE 107 IU/L (3-129); ANION GAP 8 MEQ/L (2-14); CHLORIDE 108 MEQ/L (99-109); DIRECT BILIRUBIN 0.2 mg/dL (0.0-0.3); GFR ESTIMATE (CALCULATED) 52 mL/min/; GLUCOSE 117 mg/dL (70-99); POTASSIUM 4.3 MEQ/L (3.7-5.4); PREALBUMIN 11.5 mg/dL (10-40); SAMPLE HEMOLYSIS CHECK 0; SAMPLE ICTERIC CHECK 0; SAMPLE LIPEMIA CHECK 0; SODIUM 141 MEQ/L (136-147); TOTAL BILIRUBIN 0.5 MG/DL (0.0-1.0); TRIGLYCERIDES 109 MG/DL (Normal: <150); UREA NITROGEN (BUN) 25 mg/dL (9-23)
[2017-10-14 07:24] VITALS: BP 147/66
[2017-10-14 17:35] VITALS: BP 139/68
[2017-10-14 23:43] VITALS: BP 148/76
[2017-10-15 06:02] LABS: HEMATOCRIT 27.2 % (38.0-50.0); MCH 24.6 PG (29.0-34.0); MCHC 30.5 G/DL (30.0-36.0); MCV 80.7 FL (86-99); MEAN PLAT.VOLUME 11.3 uM^3 (9.0-12.4); NRBC (%) 0.2 /100 WBC (0-0); PLATELET COUNT 296 K/uL (156-360); RBC DIS.WIDTH-CV 15.7 % (11.8-14.6); RED BLOOD COUNT 3.37 M/uL (4.00-5.50); WHITE BLOOD COUNT 12.1 K/uL (4.1-10.2)
[2017-10-15 06:21] LABS: ANION GAP 9 MEQ/L (2-14); CHLORIDE 107 MEQ/L (99-109); GFR ESTIMATE (CALCULATED) 48 mL/min/; GLUCOSE 155 mg/dL (70-99); MAGNESIUM 1.9 mg/dl (1.3-2.7); POTASSIUM 3.9 MEQ/L (3.7-5.4); SAMPLE HEMOLYSIS CHECK 0; SAMPLE ICTERIC CHECK 0; SAMPLE LIPEMIA CHECK 0; SODIUM 139 MEQ/L (136-147); UREA NITROGEN (BUN) 32 mg/dL (9-23)
[2017-10-15 06:50] VITALS: BP 122/59
[2017-10-15 14:18] LABS: URINE UREA NITROGEN 9196 MG/24 HR
[2017-10-15 14:56] VITALS: BP 134/61
== END 2017-10-16 02:23 | DRG 374 ==
LOC: EME 12:13 → 5SOUTH 15:27 → EDOF 15:27 → 5EAST 15:27 → CANRESERV 15:31 → ENRESERV 15:31 → 5SOUTH 16:47 → ENRESERV 10-13 17:19 → 5EAST 10-13 19:28
PROVIDERS: Emergency Medicine; Hospitalist; Internal Medicine Nephrology; Nurse Practitioner Adult Health; Physician Assistant; Physician Assistant Medical; Specialist; Student in an Organized Health Care Education/Training Program
DX: C78.6 Secondary malignant neoplasm of retroperitoneum and peritoneum (principal); K56.7 Ileus, unspecified; K31.84 Gastroparesis; E44.0 Moderate protein-calorie malnutrition; E86.0 Dehydration; J69.0 Pneumonitis due to inhalation of food and vomit; J18.9 Pneumonia, unspecified organism; Y95 Nosocomial condition; I46.9 Cardiac arrest, cause unspecified; R04.2 Hemoptysis; E83.42 Hypomagnesemia; C67.9 Malignant neoplasm of bladder, unspecified; G47.33 Obstructive sleep apnea (adult) (pediatric); E78.5 Hyperlipidemia, unspecified; I73.9 Peripheral vascular disease, unspecified; F17.210 Nicotine dependence, cigarettes, uncomplicated; F32.9 Major depressive disorder, single episode, unspecified; I12.9 Hypertensive chronic kidney disease with stage 1 through stage 4 chronic kidney disease, or unspecified chronic kidney disease; N18.3 Chronic kidney disease, stage 3 (moderate); I25.10 Atherosclerotic heart disease of native coronary artery without angina pectoris; I48.0 Paroxysmal atrial fibrillation; K44.9 Diaphragmatic hernia without obstruction or gangrene; D64.9 Anemia, unspecified; K31.5 Obstruction of duodenum; N32.0 Bladder-neck obstruction; K20.9 Esophagitis, unspecified; K29.70 Gastritis, unspecified, without bleeding; K92.1 Melena; R97.21 Rising PSA following treatment for malignant neoplasm of prostate; F17.200 Nicotine dependence, unspecified, uncomplicated; Z96.652 Presence of left artificial knee joint; Z86.73 Personal history of transient ischemic attack (TIA), and cerebral infarction without residual deficits; Z95.828 Presence of other vascular implants and grafts; Z93.3 Colostomy status; Z93.6 Other artificial openings of urinary tract status; Z90.49 Acquired absence of other specified parts of digestive tract; Z90.79 Acquired absence of other genital organ(s); Z85.46 Personal history of malignant neoplasm of prostate; Z79.01 Long term (current) use of anticoagulants
CPT/HCPCS: 71010; 74020; 74176; 76000; 76937; 78306; 80048; 80048 91; 80053; 80069; 81003; 81050; 82248; 82272; 83605; 83690; 83735; 84100; 84134; 84403; 84478; 84540; 84550; 84630 90; 85014; 85018; 85025; 85027; 85610; 85730; 86850; 86900; 86901; 87040; 87070; 87077; 87086; 87086 GA; 87106; 87186; 87205; 87449; 88305; 88312; 88342 TC; 93005; 94667; 94668; 94799; 97530 GO; 99202; 99281; 99284; 99285; A9503; C9113; G0103; J0456; J0696; J0780; J1453; J1650; J2060; J2250; J2405; J2765; J3370; J3475; J3480; J7030; J7050; J7120; J9045; J9201